=== PATIENT | female | born 1940 | race Caucasian/White ===

== ENCOUNTER 2016-11-17 00:29 | Emergency (ER) | payer MEDICARE ==
[2016-11-17] MEDS ORDERED: NS 0.9% 1000 ML* 1,000 ML IV ONE (00:37)
[2016-11-17] MEDS ORDERED: Ondansetron INJ* 2 MG/ML VIAL IV ONE (00:37)
[2016-11-17 01:38] LABS: Hematocrit 40 % (35-47); Hemoglobin 13.4 g/dl (12.0-16.0); Mean Corpuscular HGB Conc 33 g/dl (31-36); Mean Corpuscular Hemoglobin 31 pg (27-31); Mean Corpuscular Volume 93 fL (80-97); Mean Platelet Volume 9 um3 (7.4-10.4); Red Blood Count 4.35 10^6/ul (4.0-5.4); Red Cell Distribution Width 14 % (10.5-15); White Blood Count 7.4 10^3/ul (3.5-10.8)
[2016-11-17 01:54] LABS: Albumin 4.2 g/dL (3.2-5.2); BUN/Creatinine Ratio 25.3 (8-20); C Reactive Protein 5.55 mg/L (< 5.00); Calcium 10.2 mg/dL (8.6-10.3); EGFR African American 70.5 (>60); EGFR Non-African American 54.8 (>60); Globulin 2.9 g/dL (2-4); Magnesium 1.7 mg/dL (1.9-2.7); Potassium 3.5 mmol/L (3.5-5.0); Total Bilirubin 0.4 mg/dL (0.2-1.0); Total Protein 7.1 g/dL (6.4-8.9)
[2016-11-17] MEDS ORDERED: Meclizine TAB* 12.5 MG PO ONE (03:28)
--- NOTE | 2016-11-17 04:28 | ED ---
Odell Mcarthur Benjamin, scribed for Chadd Roman MD on 11/17/16 at 0036 . GI/ HPI - HPI Summary HPI Summary: 76yo female BIBA for N/V/D. Pt also reports room spinning like dizziness. Pt have several skin biopsy done yesterday for skin CA screening. - History of Current Complaint Stated Complaint: N/V Hx Obtained From: Patient, EMS Onset/Duration: Started Hours Ago, Still Present Timing: Constant Severity: Moderate Current Severity: Moderate Associated Signs and Symptoms: Positive: Dizziness, Nausea, Vomiting, Diarrhea - Allergy/Home Medications Allergies/Adverse Reactions: Allergies Allergy/AdvReac Type Severity Reaction Status Date / Time Phenytoin [From Dilantin] Allergy Severe Anaphylatic Verified 10/17/14 06:49 Shock Sulfa Drugs Allergy Severe Unknown Verified 10/17/14 06:49 Reaction Details Ephedrine [From Tedral] Allergy Intermediate Blisters Verified 10/17/14 06:49 Phenobarbital [From Tedral] Allergy Intermediate Blisters Verified 10/17/14 06: 49 Theophylline [From Tedral] Allergy Intermediate Blisters Verified 10/17/14 06:49 Adhesive Tape Allergy BLOOD Verified 10/17/14 06:49 BLISTERS Diphenhydramine Allergy Anxiety Verified 10/17/14 06:49 [From Benadryl] Fexofenadine [From Yuliya] Allergy Unknown Verified 10/17/14 06:49 Reaction Details HUGO Allergy Severe SEVERE Uncoded 10/17/14 06:49 SWELLING COLD MEDICATION(STARTS WITH Allergy Unknown Uncoded 10/17/14 06:49 Q) Reaction Details PMH/Surg Hx/FS Hx/Imm Hx Endocrine/Hematology History: Denies: Hx Diabetes Cardiovascular History: Reports: Hx Hypertension - ON MEDICATION FOR Denies: Hx Congestive Heart Failure, Hx Pacemaker/ICD Respiratory History: Reports: Hx Asthma - ROUTINE AND PRN MEDICATION FOR, Hx Chronic Obstructive Pulmonary Disease (COPD), Other Respiratory Problems/ Disorders - FULL BLOWN COPD EPISODE-07/2014- WAS SEEN IN ER GI History: Reports: Hx Irritable Bowel - VEGETABLES AND FRUITS- EATEN ONLY IN MODERATION Denies: Other GI Disorders History: Denies: Hx Renal Disease, Other Problems/Disorders Musculoskeletal History: Reports: Hx Arthritis, Hx Bursitis - LEFT SHOULDER Sensory History: Reports: Hx Cataracts, Hx Contacts or Glasses - GLASSES Denies: Hx Hearing Aid Opthamlomology History: Reports: Hx Cataracts, Hx Contacts or Glasses - GLASSES Neurological History: Reports: Hx Headaches - WHEN HAS PROBLEMS WITH SINUSES, 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 05/2014- ATTEMPTED TO DO A D&C- UNABLE TO DO PROCEDURE FOR OTHER [employer]PERVIS[employer] REASON- STATES WAS VERY GROGGY FOR A FEW DAYS AFTER Hx Anesthesia Reactions: Yes - VERY GROGGY FOR A FEW DAYS AFTER, DELAYED REACTION TO MEDICATION AT TIMES Infectious Disease History: Denies: Traveled Outside the [place] in Last 30 Days - Family History Known Family History: Positive: Hypertension - Social History Occupation: Retired Lives: With Family Alcohol Use: None Substance Use Type: Reports: None Smoking Status (MU): Former Smoker Amount Used/How Often: <1 YEAR Review of Systems Constitutional: Negative Eyes: Negative ENT: Negative Cardiovascular: Negative Respiratory: Negative Gastrointestinal: Negative Positive: Vomiting, Diarrhea, Nausea Genitourinary: Negative Musculoskeletal: Negative Skin: Negative Neurological: Other - dizziness Psychological: Normal All Other Systems Reviewed And Are Negative: Yes Physical Exam Triage Information Reviewed: Yes Vital Signs On Initial Exam: Initial Vitals Temp Pulse Resp BP Pulse Ox 97.6 F 77 16 162/73 99 11/17/16 01:45 11/17/16 01:45 11/17/16 01:45 11/17/16 01:45 11/17/16 01:45 Vital Signs Reviewed: Yes Appearance: Positive: No Pain Distress, Ill-Appearing, Obese Skin: Positive: Warm Head/Face: Positive: Normal Head/Face Inspection Eyes: Positive: SURINDER ENT: Positive: Hearing grossly normal Neck: Positive: Supple Respiratory/Lung Sounds: Positive: Clear to Auscultation, Breath Sounds Present Cardiovascular: Positive: RRR Abdomen Description: Positive: Nontender, No Organomegaly, Soft Bowel Sounds: Positive: Present Musculoskeletal: Positive: Strength/ROM Intact Neurological: Positive: Sensory/Motor Intact, Alert, Oriented to Person Place, Time Psychiatric: Positive: Affect/Mood Appropriate Diagnostics - Vital Signs Vital Signs Temp Pulse Resp BP Pulse Ox 11/17/16 01:45 97.6 F 77 16 162/73 99 - Laboratory Lab Results: Lab Results 11/17/16 11/17/16 11/17/16 Range/Units 01:30 01:30 01:30 WBC 7.4 (3.5-10.8) 10^3/ul RBC 4.35 (4.0-5.4) 10^6/ul Hgb 13.4 (12.0-16.0) g/dl Hct 40 (35-47) % MCV 93 (80-97) fL MCH 31 (27-31) pg MCHC 33 (31-36) g/dl RDW 14 (10.5-15) % Plt Count 199 (150-450) 10^3/ul MPV 9 (7.4-10.4) um3 Neut % (Auto) 71.9 (38-83) % Lymph % (Auto) 14.4 L (25-47) % [place] % (Auto) 10.0 H (1-9) % Eos % (Auto) 1.5 (0-6) % Baso % (Auto) 2.2 H (0-2) % Absolute Neuts (auto) 5.3 (1.5-7.7) 10^3/ul Absolute Lymphs (auto) 1.1 (1.0-4.8) 10^3/ul Absolute Monos (auto) 0.7 (0-0.8) 10^3/ul Absolute Eos (auto) 0.1 (0-0.6) 10^3/ul Absolute Basos (auto) 0.2 (0-0.2) 10^3/ul Absolute Nucleated RBC 0.01 10^3/ul Nucleated RBC % 0.1 Sodium 135 (133-145) mmol/L Potassium 3.5 (3.5-5.0) mmol/L Chloride 96 L (101-111) mmol/L Carbon Dioxide 30 (22-32) mmol/L Anion Gap 9 (2-11) mmol/L BUN 25 H (6-24) mg/dL Creatinine 0.99 H (0.51-0.95) mg/dL Est GFR ( Amer) 70.5 (>60) Est GFR (Non-Af Amer) 54.8 (>60) BUN/Creatinine Ratio 25.3 H (8-20) Glucose 169 H (70-100) mg/dL Lactic Acid 1.1 (0.5-2.0) mmol/L Calcium 10.2 (8.6-10.3) mg/dL Magnesium 1.7 L (1.9-2.7) mg/dL Total Bilirubin 0.40 (0.2-1.0) mg/dL AST 18 (13-39) U/L ALT 20 (7-52) U/L Alkaline Phosphatase 80 (34-104) U/L C-Reactive Protein 5.55 H (< 5.00) mg/L Total Protein 7.1 (6.4-8.9) g/dL Albumin 4.2 (3.2-5.2) g/dL Globulin 2.9 (2-4) g/dL Albumin/Globulin Ratio 1.4 (1-3) Lipase 15 (11.0-82.0) U/L Result Diagrams: 11/17/16 01:30 11/17/16 01:30 Lab Statement: Any lab studies that have been ordered have been reviewed, and results considered in the medical decision making process. Re-Evaluation - Re-Evaluation First Eval Change: Improved - pt with hx vertigo better after tx GIGU Course/Dx - Diagnoses Provider Diagnoses: Vertigo Discharge - Discharge Plan Condition: Improved Disposition: HOME Patient Education Materials: Vertigo (ED) Referrals: Chaz Austin MD [Primary Care Provider] - 1 Week The documentation as recorded by the Odell keller Benjamin accurately reflects the service I personally performed and the decisions made by Jessie vieira David, MD.
[2016-11-17 05:21] VITALS: BP 160/85
== END 2016-11-17 05:22 | disposition home or self-care (01) ==
LOC: ED 00:29
DX: R42 Dizziness and giddiness (principal); R11.2 Nausea with vomiting, unspecified; R19.7 Diarrhea, unspecified; I10 Essential (primary) hypertension; J44.9 Chronic obstructive pulmonary disease, unspecified; F32.9 Major depressive disorder, single episode, unspecified; Z88.8 Allergy status to other drugs, medicaments and biological substances; Z88.2 Allergy status to sulfonamides; Z91.048 Other nonmedicinal substance allergy status; Z87.891 Personal history of nicotine dependence
CPT/HCPCS: 36415; 80053; 83605; 83690; 83735; 85025; 86140; 96361; 96374; 99283; A9270-GY; J2405